=== PATIENT | male | born 1975 | race Caucasian/White ===

== ENCOUNTER 2024-12-31 00:18 | Emergency (ER) | payer SELFPAY ==
[~2024-12-31] VITALS: Ht 175.3 cm; Wt 86.0 kg
[2024-12-31 00:27] VITALS: TEMP 36.7; O2SAT 95; O2SAT 99
[2024-12-31] MEDS ORDERED: NAPR-677 MT (01:43)
[2024-12-31] MEDS ORDERED: TOPUD MT (01:43)
[2024-12-31 01:53] VITALS: TEMP 98.1
[2024-12-31] MEDS: ACETAMINOPHEN 325MG TABLET PO ONE (01:53)
[2024-12-31 01:55] VITALS: BP 130/84; PULSE 110; RESP 20
[2024-12-31] MEDS: KETOROLAC 30MG/ML VIAL IM ONE (01:55)
== END 2024-12-31 02:03 | disposition home or self-care (01) ==
LOC: ER 00:28
DX: S43.492A Other sprain of left shoulder joint, initial encounter (principal); I10 Essential (primary) hypertension; Z79.1 Long term (current) use of non-steroidal anti-inflammatories (NSAID); Z88.2 Allergy status to sulfonamides; X58.XXXA Exposure to other specified factors, initial encounter; Y93.89 Activity, other specified; Y92.89 Other specified places as the place of occurrence of the external cause; Y99.8 Other external cause status
CPT/HCPCS: 99283; 73030; 96372; J1885